=== PATIENT | female | born 1980 | race Caucasian/White ===

== ENCOUNTER 2016-06-30 00:53 | Inpatient (IN) | payer MEDICAID, OTHER ==
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
[2016-06-30] MEDS ORDERED: ZIPRASIDONE 20 MG VIAL IM PRN (04:55)
[2016-06-30] MEDS ORDERED: MAGNESIUM HYDROXIDE 2,400 MG/10 ML CUP PO PRN (04:55)
[2016-06-30] MEDS ORDERED: MAG HYDROX/AL HYDROX/SIMETH 30 ML CUP PO PRN (04:55)
[2016-06-30 06:14] VITALS: BMI 35.0
[2016-06-30] MEDS: NICOTINE 21MG/24HR PATCH TRANSDERM SCH (08:16)
[2016-06-30] MEDS: LORazepam 1 MG TAB PO PRN ×2 (08:16→20:06)
[2016-06-30 09:06] LABS: Basophils # (A) 0.1 k/uL (0-0.2); Basophils % (A) 1 %; CH 30.3; CHCM 34.3; Eosinophils # (A) 0.2 k/uL (0-0.7); Eosinophils % (A) 2 %; HCT 41.3 % (34.0-46.0); HGB 13.8 gm/dL (11.4-16.0); Luc % (Auto) 2; Lymphocytes # (A) 3.7 k/uL (1.0-4.8); Lymphocytes % (A) 32 %; MCH 29.6 pg (25.0-35.0); MCHC 33.3 g/dL (31.0-37.0); MCV 88.9 fL (80.0-100.0); Mean Platelet Volume 7.6; Monocytes # (A) 0.5 k/uL (0-1.0); Monocytes % (A) 5 %; Neutrophils # (A) 6.7 k/uL (1.3-7.7); Neutrophils % (A) 59 %; RBC 4.64 m/uL (3.80-5.40); WBC 11.4 k/uL (3.8-10.6); WBC (Perox) 11.48
[2016-06-30 09:29] LABS: ALT 51 U/L (9-52); AST 32 U/L (14-36); Alkaline Phosphatase 89 U/L (38-126); Anion Gap 16 mmol/L; Blood Urea Nitrogen 13 mg/dL (7-17); Calcium 9.6 mg/dL (8.4-10.2); Carbon Dioxide 21 mmol/L (22-30); Chloride 106 mmol/L (98-107); Glucose 102 mg/dL (74-99); Non-African American GFR(MDRD) >60 (>60 ml/min/1.73 sqM); Potassium 4.1 mmol/L (3.5-5.1); Sodium 143 mmol/L (137-145); Total Bilirubin 0.5 mg/dL (0.2-1.3)
[2016-06-30] MEDS: CITALOPRAM HYDROBROMIDE 20 MG TAB PO SCH (10:55)
[2016-06-30 11:03] LABS: Hemoglobin A1C 5.6 % (4.2-6.1)
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
[2016-06-30] MEDS: LORATADINE 10 MG TAB PO SCH (12:28)
[2016-06-30] MEDS: AMOXIC-POT CLAV 875-125MG 1 EACH TAB PO SCH ×2 (12:28→20:04)
[2016-06-30] MEDS: FLUTICASONE 50MCG/SPRAY NASAL 16GM EA NOSTRIL SCH (12:28)
[2016-06-30] MEDS: lamoTRIgine 25 MG TAB PO SCH ×2 (16:23→20:04)
[2016-06-30] MEDS: Acetaminophen-Codeine 300-30mg TAB PO PRN (17:22)
[2016-06-30] MEDS: PALIPERIDONE 6 MG TAB.ER.24 PO SCH (20:04)
[2016-06-30] MEDS: SYMBICORT 160-4.5 MCG INHALER INHALATION SCH (20:51)
[2016-06-30] MEDS: ALBUTEROL INHALER 60 PUFF/8 GM INHALER INHALATION PRN (20:51)
[2016-06-30] MEDS ORDERED: MELATONIN 3 MG TABLET PO SCH (21:00)
[2016-07-01 04:07] LABS: Glucose,Whole Blood 95 mg/dL (75-99)
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
[2016-07-01] MEDS: CITALOPRAM HYDROBROMIDE 20 MG TAB PO SCH (08:50)
[2016-07-01] MEDS: LORATADINE 10 MG TAB PO SCH (08:50)
[2016-07-01] MEDS: lamoTRIgine 25 MG TAB PO SCH ×3 (08:50→21:07)
[2016-07-01] MEDS: NICOTINE 21MG/24HR PATCH TRANSDERM SCH (08:50)
[2016-07-01] MEDS: AMOXIC-POT CLAV 875-125MG 1 EACH TAB PO SCH ×2 (08:50→21:07)
[2016-07-01] MEDS: FLUTICASONE 50MCG/SPRAY NASAL 16GM EA NOSTRIL SCH (08:50)
[2016-07-01] MEDS: SYMBICORT 160-4.5 MCG INHALER INHALATION SCH (09:21)
--- NOTE | 2016-07-01 15:33 | P.PN ---
Progress Note - Text SUBJECTIVE: Patient is still having auditory hallucinations ,no command voice and less intense than before,reports feeling tired and fatigued"I AM TRYING TO ADJUST TO MEDICATION",patient started talking about "HER SLEEPWALKING " and when I told her that we did not notice any sleepwalking episode since her admission ,she replied "IT DOES HAPPEN MORE AT HOME , IT IS NOT FAIR TO BE RESPONSIBLE OF MY ACTION DURING SLEEPWALKING",I discussed with her that she has to follow-up with sleep clinic for 24 hours sleep studies PER NURSING STAFF : Patient did request PRN Ativan last night ,staying in bed most of day ,up for meal ,no participation in groups MENTAL STATUS EXAM: Overweight female ,poor grooming ,good eyes contact ,speech is non spontaneous but coherent ,constricted affect ,denies suicidal or homicidal ideation ,still having auditory hallucination ,less intense.than yesterday ,insight is limited PLAN: Monitor any acting out behavior ,continue current medications ,decrease PRN Ativan ,Family meeting with on weekend
[2016-07-01] MEDS: LORazepam 0.5 MG TAB PO PRN (16:42)
[2016-07-01] MEDS: PALIPERIDONE 6 MG TAB.ER.24 PO SCH (21:07)
[2016-07-01] MEDS: Acetaminophen-Codeine 300-30mg TAB PO PRN (21:10)
[2016-07-02] MEDS: ACETAMINOPHEN TAB 325 MG TAB PO PRN ×2 (00:40→19:02)
[2016-07-02] MEDS: ALBUTEROL INHALER 60 PUFF/8 GM INHALER INHALATION PRN ×2 (00:51→16:27)
[2016-07-02] MEDS: SYMBICORT 160-4.5 MCG INHALER INHALATION SCH ×3 (00:53→16:29)
[2016-07-02] MEDS: LORATADINE 10 MG TAB PO SCH (10:52)
[2016-07-02] MEDS: NICOTINE 21MG/24HR PATCH TRANSDERM SCH (10:52)
[2016-07-02] MEDS: AMOXIC-POT CLAV 875-125MG 1 EACH TAB PO SCH ×2 (10:52→21:17)
[2016-07-02] MEDS: CITALOPRAM HYDROBROMIDE 20 MG TAB PO SCH (10:52)
[2016-07-02] MEDS: lamoTRIgine 25 MG TAB PO SCH ×3 (10:53→21:18)
[2016-07-02] MEDS: FLUTICASONE 50MCG/SPRAY NASAL 16GM EA NOSTRIL SCH (10:53)
[2016-07-02] MEDS: LORazepam 0.5 MG TAB PO PRN (15:14)
[2016-07-02] MEDS: Acetaminophen-Codeine 300-30mg TAB PO PRN (15:14)
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
[2016-07-02 21:02] LABS: Appearance,Urine Clear (Clear); Bilirubin,Urine Negative (Negative); Glucose,Urine (UA) Negative (Negative); Ketones,Urine Negative (Negative); Leukocyte Esterase,Urine Negative (Negative); Nitrite,Urine Negative (Negative); Particle Count 242; Protein,Urine Negative (Negative); RBC,Urine 1 /hpf (0-5); Specific Gravity,Urine 1.004 (1.001-1.035); Squamous Epithelial Cell,Urine <1 /hpf (0-4); UA Billing (MACRO vs. MICRO) MICRO; Urobilinogen,Urine <2.0 mg/dL (<2.0)
[2016-07-02] MEDS: MELATONIN 3 MG TABLET PO SCH (21:17)
[2016-07-02] MEDS: PALIPERIDONE 3 MG TAB.ER.24 PO SCH (21:17)
[2016-07-03 05:51] VITALS: RESP 16
[2016-07-03] MEDS: lamoTRIgine 25 MG TAB PO SCH ×3 (08:55→21:21)
[2016-07-03] MEDS: AMOXIC-POT CLAV 875-125MG 1 EACH TAB PO SCH ×2 (08:55→21:20)
[2016-07-03] MEDS: CITALOPRAM HYDROBROMIDE 20 MG TAB PO SCH (08:55)
[2016-07-03] MEDS: LORATADINE 10 MG TAB PO SCH (08:55)
[2016-07-03] MEDS: FLUTICASONE 50MCG/SPRAY NASAL 16GM EA NOSTRIL SCH (08:56)
[2016-07-03] MEDS: NICOTINE 21MG/24HR PATCH TRANSDERM SCH (08:58)
[2016-07-03] MEDS: Acetaminophen-Codeine 300-30mg TAB PO PRN ×2 (08:58→21:21)
[2016-07-03] MEDS: LORazepam 0.5 MG TAB PO PRN (11:05)
--- NOTE | 2016-07-03 15:13 | P.PN ---
Progress Note - Text SUBJECTIVE: patient had her family meeting this afternoon and feeling hopeful regarding future of her marriage,denies any current hallucination ,denies any delusion , able to tolerate medication ,started to participate in milieu MENTAL STATUS EXAM: Overweight female ,adequate grooming ,good eyes contact ,speech is non spontaneous but coherent ,constricted affect ,denies suicidal or homicidal ideation , denies psychotic features ,denies any side-effect from psychotropic medication PLAN: Monitor any acting out behavior ,continue current medications ,decrease PRN Ativan ,most likely discharge on Tuesday
[2016-07-03] MEDS: SYMBICORT 160-4.5 MCG INHALER INHALATION SCH ×2 (16:50→19:58)
[2016-07-03] MEDS ORDERED: ASPIRIN 325 MG TAB PO STA (16:52)
[2016-07-03] MEDS: PALIPERIDONE 3 MG TAB.ER.24 PO SCH (21:20)
[2016-07-03] MEDS: MELATONIN 3 MG TABLET PO SCH (21:20)
[2016-07-03] MEDS: hydrOXYzine PAMOATE 25 MG CAP PO PRN (21:21)
[2016-07-03 21:35] LABS: Glucose,Whole Blood 132 mg/dL (75-99)
[2016-07-04] MEDS: CITALOPRAM HYDROBROMIDE 20 MG TAB PO SCH ×2 (08:41→08:43)
[2016-07-04] MEDS: AMOXIC-POT CLAV 875-125MG 1 EACH TAB PO SCH ×2 (08:41→21:05)
[2016-07-04] MEDS: FLUTICASONE 50MCG/SPRAY NASAL 16GM EA NOSTRIL SCH (08:41)
[2016-07-04] MEDS: lamoTRIgine 25 MG TAB PO SCH ×3 (08:41→21:05)
[2016-07-04] MEDS: LORATADINE 10 MG TAB PO SCH ×2 (08:41→08:43)
[2016-07-04] MEDS: Acetaminophen-Codeine 300-30mg TAB PO PRN ×2 (08:42→21:10)
[2016-07-04] MEDS: NICOTINE 21MG/24HR PATCH TRANSDERM SCH (08:44)
[2016-07-04] MEDS: SYMBICORT 160-4.5 MCG INHALER INHALATION SCH ×3 (11:29→23:09)
--- NOTE | 2016-07-04 13:37 | P.PN ---
Progress Note - Text SUBJECTIVE: Patient is feeling hopeful regarding future of her marriage,denies any current hallucination ,denies any delusion ,able to tolerate medication ,started to participate in milieu ,asked for letter to take it to court on July 13 regarding assault charge ,I told her that her district attorney can request record ,she verbalized understanding MENTAL STATUS EXAM: Overweight female ,adequate grooming ,good eyes contact ,speech is non spontaneous but coherent ,constricted affect ,denies suicidal or homicidal ideation , denies psychotic features ,denies any side-effect from psychotropic medication PLAN: Monitor any acting out behavior ,continue current medications ,decrease PRN Ativan ,most likely discharge on Tuesday
[2016-07-04] MEDS: ACETAMINOPHEN TAB 325 MG TAB PO PRN (15:31)
[2016-07-04] MEDS: LORazepam 0.5 MG TAB PO PRN (17:29)
[2016-07-04] MEDS: PALIPERIDONE 3 MG TAB.ER.24 PO SCH (21:05)
[2016-07-04] MEDS: MELATONIN 3 MG TABLET PO SCH (21:05)
[2016-07-04] MEDS: hydrOXYzine PAMOATE 25 MG CAP PO PRN (21:11)
[2016-07-05 06:42] VITALS: BP 100/53; PULSE 74; TEMP 98.3
[2016-07-05] MEDS: NICOTINE 21MG/24HR PATCH TRANSDERM SCH (08:22)
[2016-07-05] MEDS: FLUTICASONE 50MCG/SPRAY NASAL 16GM EA NOSTRIL SCH (08:22)
[2016-07-05] MEDS: lamoTRIgine 25 MG TAB PO SCH (08:23)
[2016-07-05] MEDS: AMOXIC-POT CLAV 875-125MG 1 EACH TAB PO SCH (08:23)
[2016-07-05] MEDS: Acetaminophen-Codeine 300-30mg TAB PO PRN (08:24)
[2016-07-05] MEDS: LORazepam 0.5 MG TAB PO PRN (08:24)
[2016-07-05] MEDS: SYMBICORT 160-4.5 MCG INHALER INHALATION SCH (09:12)
--- NOTE | 2016-07-06 07:38 | DS ---
DATE OF ADMISSION: 06/30/2016 DATE OF DISCHARGE: 07/05/2016 CONSULT PHYSICIAN: Zhang. CONSULTING PROVIDER: Dr. Juan Ross Consult reason for medical management. DISCHARGE DIAGNOSES: 1. Bipolar disorder type 2. 2. Cannabis abuse and dependence. 3. History of posttraumatic stress disorder. 4. Cluster B personality trait. 5. Acute sinusitis and asthma. Brief summary of the admission note: Patient was admitted to the mental health unit from the emergency room for hallucination, telling her to hurt herself and hurt her . For complete history, please refer to my complete history and physical examination dictated on June 30. HOSPITAL COURSE: The patient was admitted on voluntary basis. Dr. Ross saw the patient for medical consultation and is impression that the patient has acute sinusitis, asthma and chronic pain and he did start her on Augmentin with Ventolin inhaler and Claritin. In addition, he did add Tylenol with Codeine for her chronic pain. Patient was seen on daily basis and I did start her on her medications that she stated that it was effective 6 months ago and this is including Invega, Lamictal and Celexa and I gradually titrated Invega to eliminate all auditory hallucination and the delusional thinking. Patient was able to tolerate medication and she was participating in group therapy just for the last couple of days of her admission here. networker had family meeting between the patient and her and she did discuss that both of them need to be compliant with psychotropic medication to avoid any assault or any argument. Also, we did recommend that both have to seek marriage counseling. Mental status examination at the time of the discharge, patient is alert, gave good eye contact, hygiene and grooming are adequate. Speech is spontaneous, non-pressured, thought process is linear. She reports no homicidal or suicide ideation, intent or plan. She does not feel hopeless. There is no evidence of hypomania or freddie. There is no evidence of psychosis. Her insight and judgment are improving. There is no verbal or physical aggression observed. PLAN: 1. The patient will be discharged from the mental health unit today to return back home. 2. Patient was referred back to [facility] for medication on counseling. 3. Patient was instructed to abstain from marijuana and any habit-forming drug. 4. Patient was instructed to be compliant with psychotropic medication to avoid rehospitalization. 5. Patient was given a one-month supply for Invega 9 mg at bedtime, Lamictal 25 mg 3 times a day for one month, Celexa 40 mg daily. Also, I did give her Augmentin to continue the course of antibiotic for the next 4 days for her acute sinusitis and Flonase in addition to the Claritin. There is no eminent safety risk and patient is appropriate for transition back to his outpatient care. Patient does not have access to any firearms. Patient condition at the time of the discharge, stable.
== END 2016-07-05 09:44 | disposition home or self-care (01) | DRG 885 ==
LOC: EC 00:53 → 3MHU 04:30
PROVIDERS: ADMIT Psychiatry & Neurology Psychiatry; ATTEND Psychiatry & Neurology Psychiatry
DX: F31.81 Bipolar II disorder (principal); R45.851 Suicidal ideations; E11.9 Type 2 diabetes mellitus without complications; F17.210 Nicotine dependence, cigarettes, uncomplicated; F41.0 Panic disorder [episodic paroxysmal anxiety]; J01.90 Acute sinusitis, unspecified; F12.10 Cannabis abuse, uncomplicated; F43.10 Post-traumatic stress disorder, unspecified; G47.00 Insomnia, unspecified; G89.29 Other chronic pain; I25.2 Old myocardial infarction; J45.909 Unspecified asthma, uncomplicated; Z65.3 Problems related to other legal circumstances; Z81.3 Family history of other psychoactive substance abuse and dependence; Z81.8 Family history of other mental and behavioral disorders; Z82.49 Family history of ischemic heart disease and other diseases of the circulatory system; Z91.410 Personal history of adult physical and sexual abuse
CPT/HCPCS: 80053; 80306; 81001; 82075; 83036; 84443; 84484; 85025; 93005; 94640

== ENCOUNTER → 2016-08-26 | Outpatient (CLI) | payer OTHER ==
--- NOTE | 2016-08-27 07:17 | MM ---
Reason for exam: additional evaluation requested from prior study. Last mammogram was performed 1 year and 5 months ago. History: Patient has history of other cancer at age 34. Physical Findings: Nurse did not find any significant physical abnormalities on exam. MG 3D Diag Mammo W/Cad ROZ Bilateral CC and MLO view(s) were taken. ML and spot compression CC view(s) were taken of the right breast. Prior study comparison: April 11, 2015, left breast MG 3d work up w/cad LT. February 12, 2015, bilateral MG screening mammo w CAD. The breast tissue is heterogeneously dense. This may lower the sensitivity of mammography. Finding: There is a 7 mm indistinct round mass, this compresses. New finding since April 11, 2015 and February 12, 2015. These results were verbally communicated with the patient and result sheet given to the patient on 08/26/16. ASSESSMENT: Probably benign, BI-RAD 3 RECOMMENDATION: Follow-up diagnostic mammogram of the right breast in 6 months. Manage on a clinical basis with regard to right breast discharge.
== END | disposition home or self-care (01) ==
LOC: RADMAMWWP 13:36
PROVIDERS: ATTEND Nurse Practitioner
DX: R92.2 Inconclusive mammogram (principal)
CPT/HCPCS: G0204; G0279

== ENCOUNTER 2016-08-30 23:38 | Inpatient (IN) | payer MEDICAID, OTHER ==
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
[2016-08-31 02:10] LABS: ALT 46 U/L (9-52); AST 36 U/L (14-36); Alkaline Phosphatase 71 U/L (38-126); Anion Gap 9 mmol/L; Blood Urea Nitrogen 11 mg/dL (7-17); Calcium 9.3 mg/dL (8.4-10.2); Carbon Dioxide 26 mmol/L (22-30); Chloride 104 mmol/L (98-107); Glucose 84 mg/dL (74-99); Lithium 0.8 mmol/L; Non-African American GFR(MDRD) >60 (>60 ml/min/1.73 sqM); Potassium 3.6 mmol/L (3.5-5.1); Sodium 139 mmol/L (137-145); Total Bilirubin 0.5 mg/dL (0.2-1.3); Total Protein 7.9 g/dL (6.3-8.2)
[2016-08-31 03:31] VITALS: BMI 37.3
[2016-08-31] MEDS ORDERED: MAG HYDROX/AL HYDROX/SIMETH 30 ML CUP PO PRN (03:51)
[2016-08-31] MEDS ORDERED: ZIPRASIDONE 20 MG VIAL IM PRN (03:51)
[2016-08-31] MEDS ORDERED: MAGNESIUM HYDROXIDE 2,400 MG/10 ML CUP PO PRN (03:51)
[2016-08-31] MEDS ORDERED: PALIPERIDONE IM 234 MG/1.5 ML SYG IM SCH (04:00)
[2016-08-31] MEDS: SYMBICORT 160-4.5 MCG INHALER INHALATION SCH ×2 (09:40→21:40)
[2016-08-31] MEDS: CHOLECALCIFEROL 1,000 UNIT TAB PO SCH (10:02)
[2016-08-31] MEDS: LORATADINE 10 MG TAB PO SCH (10:02)
[2016-08-31] MEDS: CITALOPRAM HYDROBROMIDE 20 MG TAB PO SCH (10:02)
[2016-08-31] MEDS: LORazepam 1 MG TAB PO PRN ×2 (10:04→19:16)
[2016-08-31] MEDS: HYDROcodone/APAP 5-325MG 1 EACH TAB PO PRN ×2 (10:04→19:17)
[2016-08-31] MEDS: NICOTINE 14MG/24HR PATCH TRANSDERM SCH ×2 (10:42→11:28)
[2016-08-31] MEDS ORDERED: ONDANSETRON 4 MG TAB PO PRN (12:07)
[2016-08-31] MEDS: ALBUTEROL INHALER 60 PUFF/8 GM INHALER INHALATION PRN ×2 (13:45→21:40)
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
[2016-08-31] MEDS ORDERED: PALIPERIDONE IM 234 MG/1.5 ML SYG IM ONE (18:00)
[2016-08-31] MEDS: MELATONIN 5 MG TABLET PO SCH (21:20)
[2016-08-31] MEDS: hydrOXYzine PAMOATE 25 MG CAP PO SCH (21:20)
[2016-08-31] MEDS: LITHIUM CARBONATE 300 MG CAP PO SCH (21:21)
[2016-09-01] MEDS: SYMBICORT 160-4.5 MCG INHALER INHALATION SCH ×2 (09:32→22:23)
[2016-09-01] MEDS: CHOLECALCIFEROL 1,000 UNIT TAB PO SCH (10:03)
[2016-09-01] MEDS: CITALOPRAM HYDROBROMIDE 20 MG TAB PO SCH (10:04)
[2016-09-01] MEDS: NICOTINE 14MG/24HR PATCH TRANSDERM SCH (10:04)
[2016-09-01] MEDS: LORATADINE 10 MG TAB PO SCH (10:04)
[2016-09-01 10:29] LABS: Basophils % (A) 0 %; CH 29.3; CHCM 33.4; Eosinophils # (A) 0.2 k/uL (0-0.7); Eosinophils % (A) 3 %; HCT 36.7 % (34.0-46.0); HDW 2.53; HGB 12.6 gm/dL (11.4-16.0); Luc # (Auto) 0.11; Luc % (Auto) 2; Lymphocytes # (A) 1.7 k/uL (1.0-4.8); Lymphocytes % (A) 25 %; MCH 30.2 pg (25.0-35.0); MCHC 34.3 g/dL (31.0-37.0); MCV 88.2 fL (80.0-100.0); Monocytes # (A) 0.4 k/uL (0-1.0); Monocytes % (A) 6 %; Neutrophils # (A) 4.6 k/uL (1.3-7.7); Neutrophils % (A) 65 %; RBC 4.16 m/uL (3.80-5.40); RDW 13.3 % (11.5-15.5); WBC (Perox) 7.64
--- NOTE | 2016-09-01 13:27 | P.PN ---
Progress Note - Text SUBJECTIVE: I reviewed the medical record, interviewed Ms. Rodriguez and discussed her treatment and treatment plan during team meeting. She was sleeping in a room when I approached her this morning. She complained of feeling tired. She denied difficulty sleeping last night. In response to questions about suicidality she replied "yes". OBJECTIVE: She presented as a sedated and disheveled appearing 36-year-old female. She made eye contact and appeared to attend to the interview. She had a flat facial expression. She showed psychomotor retardation but no abnormal involuntary movements. Her speech was not spontaneous and had decreased rate, rhythm and volume. Her affect was depressed and not reactive. She admitted to suicidal ideation or wishes. I was unclear whether she had homicidal ideation but is angry with her . She feels hopeless, helpless and worthless. She ruminated about her legal problems. She did not express ideas reference or paranoid ideation. Her thinking was concrete but her associations were logical and coherent. She complained of continued "voices" but does not appear to be responding to internal stimuli. According to information from [facility] she received her last injection of Invega Sustenna 234 mg on 08/09/2016; her next injection is scheduled for 2016.Medical consult appreciated. [place] level from 08/31/2016 0.8. ASSESSMENT: Her fatigue and withdrawal is consistent with use of psychostimulants prior to admission (although she denied the use of amphetamines or methamphetamine). PLAN: Continue inpatient psychiatric hospitalization. Administer Invega Sustenna 234 mg at 09/06/2016. Continue assault precautions with 15 minute checks. licensing worker to exercise daily to warn regarding her expressed homicidal thoughts towards her . Continue current psychotropic medications including citalopram 40 mg daily, Vistaril 50 mg at bedtime, lithium carbonate 600 mg at bedtime, lorazepam 1 mg by mouth 3 times a day when necessary for agitation or anxiety, melatonin 5 mg at bedtime, and Geodon 20 mg IM twice a day when necessary for agitation acute psychosis. Encourage participation in therapeutic groups and activities. Evaluate clinical status response to treatment and daily basis.
[2016-09-01] MEDS: HYDROcodone/APAP 5-325MG 1 EACH TAB PO PRN (13:54)
[2016-09-01] MEDS: LORazepam 1 MG TAB PO PRN ×2 (13:54→21:05)
[2016-09-01] MEDS: LITHIUM CARBONATE 300 MG CAP PO SCH (21:03)
[2016-09-01] MEDS: hydrOXYzine PAMOATE 25 MG CAP PO SCH (21:03)
[2016-09-01] MEDS: MELATONIN 5 MG TABLET PO SCH (21:04)
[2016-09-02] MEDS: ALBUTEROL INHALER 60 PUFF/8 GM INHALER INHALATION PRN ×2 (09:16→13:50)
[2016-09-02] MEDS: SYMBICORT 160-4.5 MCG INHALER INHALATION SCH ×2 (09:16→19:20)
[2016-09-02] MEDS: CITALOPRAM HYDROBROMIDE 20 MG TAB PO SCH (10:23)
[2016-09-02] MEDS: CHOLECALCIFEROL 1,000 UNIT TAB PO SCH (10:23)
[2016-09-02] MEDS: LORATADINE 10 MG TAB PO SCH (10:23)
[2016-09-02] MEDS: NICOTINE 14MG/24HR PATCH TRANSDERM SCH (10:23)
[2016-09-02] MEDS: LORazepam 1 MG TAB PO PRN (13:19)
[2016-09-02] MEDS: HYDROcodone/APAP 5-325MG 1 EACH TAB PO PRN (13:20)
--- NOTE | 2016-09-02 14:54 | P.PN ---
Progress Note - Text SUBJECTIVE: I reviewed the medical record, interviewed Mr. Rodriguez and discussed her treatment and treatment plan during team meeting. She was lying in bed when I approached her in the early afternoon. He stated that she " always feels tired." She complained of continued feelings of depression, anxiety, hopelessness and helplessness. Her visited her yesterday. When she told him that she wants a separation he reportedly told her that he is going home and overdose on his medications. She feels overwhelmed by demands of mental health court and talked about struggling with decision to continue with mental health court or serve her long-term time. She has been to [facility] to review her medications. She alleged that she was "doing better" when her outpatient psychiatrist had prescribed Lamictal instead of lithium. OBJECTIVE: She spends most for time in bed. She does not participate in therapeutic groups and activities. She presented as a casually groomed sedated appearing 36-year-old female who was pleasant on approach. She made little eye contact. However, she appeared to attend to the interview. She had a depressed facial expression. She was alert and oriented to person, place and time. She showed psychomotor retardation but no abnormal involuntary movements. Her speech was spontaneous with decreased rate, rhythm and volume. She had no articulation difficulties. Her affect was depressed and not reactive. She denied current suicidal ideation or wishes. She denied homicidal ideation. She expresses feelings of hopelessness, helplessness and worthlessness. She related about her legal and marital problems. She did not express ideas reference, paranoid ideation or delusions. Her thinking was concrete but her associations were coherent and logical. She denied hallucinations and did not appear to be responding to internal stimuli. ASSESSMENT: She continues reported feelings of depression but denies suicidal ideation, intent or plan. She feels overwhelmed by her legal and marital problems. Overall she appears moderately mentally and minimally improve from admission. PLAN: Continue inpatient psychiatric hospitalization due continued symptoms of depression. Continue Celexa 40 mg daily, Vistaril 50 mg at bedtime, lithium carbonate 600 mg at bedtime, melatonin 5 mg at bedtime and Invega Sustenna 234 mg IM monthly. Clarify her medication treatment history with her outpatient psychiatrist. Encourage participation in therapeutic groups and activities. Evaluate clinical status and response to treatment daily basis.
[2016-09-02] MEDS: MELATONIN 5 MG TABLET PO SCH (20:55)
[2016-09-02] MEDS: LITHIUM CARBONATE 300 MG CAP PO SCH (20:55)
[2016-09-02] MEDS: hydrOXYzine PAMOATE 25 MG CAP PO SCH (20:55)
[2016-09-03] MEDS: CHOLECALCIFEROL 1,000 UNIT TAB PO SCH (09:51)
[2016-09-03] MEDS: LORATADINE 10 MG TAB PO SCH (09:52)
[2016-09-03] MEDS: CITALOPRAM HYDROBROMIDE 20 MG TAB PO SCH (09:52)
[2016-09-03] MEDS: NICOTINE 14MG/24HR PATCH TRANSDERM SCH (09:52)
[2016-09-03] MEDS: HYDROcodone/APAP 5-325MG 1 EACH TAB PO PRN ×2 (09:54→20:59)
[2016-09-03] MEDS: SYMBICORT 160-4.5 MCG INHALER INHALATION SCH ×2 (10:52→20:27)
[2016-09-03] MEDS: lamoTRIgine 25 MG TAB PO SCH (10:55)
--- NOTE | 2016-09-03 13:35 | P.PN ---
Progress Note - Text SUBJECTIVE: I reviewed the medical record, interviewed Ms. Rodriguez and discussed her treatment and treatment plan during team meeting. She complained of feeling depressed and lacking energy and motivation to meet the demands placed on her. field ironworker gave her an application for a three-quarter house through [employer] but she alleged she is unable to complete the application without assistance. She admitted that she had relapsed to cocaine and methamphetamine over the weekend (she had denied using either admission and alleged that the results of the urine drug screen was inaccurate). She blamed her for relapse stating that she has repeatedly told him not to bring drugs home. She believes that if she were to return home she would not be able to resist using methamphetamine. She only feels normal when she is snorting methamphetamine. She again complained about her current medications alleging that she "felt better" when she was taking Lamictal as opposed to lithium. She requested that we restart Lamictal. OBJECTIVE: She presented as a casually groomed 36-year-old moderately obese female with long unkempt hair. He was pleasant on approach and appeared to attend to the interview. She had no distinguishing features or prominent physical abnormalities. She had a blunted to distressed facial expression. She was alert and oriented to person place and time. She showed psychomotor retardation but no abnormal involuntary movements. Her speech was spontaneous with decreased rate. Her affect was depressed and labile. She denied suicidal ideation or wishes. She denied homicidal ideation. She suspects feeling hopeless and helpless with regard to her drug use and the demands of mental health Court. She perseverated on her difficulties with keeping the terms of her probation. She did not express ideas reference, paranoid ideation or delusional thoughts. Her thinking was concrete but her associations were coherent and logical. She denied hallucinations and did not appear to be responding to internal stimuli. ASSESSMENT: The depression and generalized anhedonia are likely results of the use of methamphetamine. She understands that she is in violation of her probation and may be facing incarceration. PLAN: Continue inpatient hospitalization due continued depressive symptoms. Initially Celexa 40 mg daily, Vistaril 50 mg at bedtime, lithium carbonate 600 mg at bedtime, melatonin 5 mg at bedtime and Invega Sustenna 234 mg monthly. Restart Lamictal 25 mg daily and titrate gradually to therapeutic dose and the range of 100-200 mg per day. Completed application for the [employer] three- quarter house. Discharge of family if she is unable to enter a three-quarter house after discharge. Encourage participation in therapeutic groups and activities. Evaluate clinical status response to treatment on a daily basis.
[2016-09-03] MEDS: LORazepam 1 MG TAB PO PRN (15:16)
[2016-09-03] MEDS: ALBUTEROL INHALER 60 PUFF/8 GM INHALER INHALATION PRN ×2 (16:52→20:27)
[2016-09-03] MEDS: ACETAMINOPHEN TAB 325 MG TAB PO PRN (18:54)
[2016-09-03] MEDS: LITHIUM CARBONATE 300 MG CAP PO SCH (20:58)
[2016-09-03] MEDS: hydrOXYzine PAMOATE 25 MG CAP PO SCH (20:59)
[2016-09-03] MEDS: MELATONIN 5 MG TABLET PO SCH (20:59)
[2016-09-04] MEDS: CHOLECALCIFEROL 1,000 UNIT TAB PO SCH (08:29)
[2016-09-04] MEDS: LORATADINE 10 MG TAB PO SCH (08:29)
[2016-09-04] MEDS: CITALOPRAM HYDROBROMIDE 20 MG TAB PO SCH (08:30)
[2016-09-04] MEDS: lamoTRIgine 25 MG TAB PO SCH (08:30)
[2016-09-04] MEDS: NICOTINE 14MG/24HR PATCH TRANSDERM SCH (08:31)
[2016-09-04] MEDS: SYMBICORT 160-4.5 MCG INHALER INHALATION SCH ×2 (09:43→21:27)
[2016-09-04] MEDS: ALBUTEROL INHALER 60 PUFF/8 GM INHALER INHALATION PRN ×4 (09:43→21:28)
--- NOTE | 2016-09-04 15:10 | P.PN ---
Progress Note - Text Interval history: The patient is found in group she follows me to an interview room. She states that she was admitted with suicidal thoughts. She states that she's been struggling with "switching personalities". She states she wishes she could control this but she just can't. She anticipates her will visit this evening in hopes that it goes well however she states "one of my personalities does not like him". Her and Dr. Jay reviewed her medicines yesterday and Lamictal was initiated as she reported she had done well with that in the past. She reports appetite stable sleep is improving. Mental status exam: The patient is an overweight female she has a disheveled appearance she is dressed in her own clothing. She has long hair and wears eyeglasses. Eye contact is appropriate speech is spontaneous fluent nonpressured. She reports that her mood is better today she had suicidal thoughts yesterday but none today so far. She expresses concern that she is not able to control her personalities. She is reporting no homicidal ideation. She is reporting no auditory or visual hallucinations currently. Insight and judgment are limited. She demonstrates no verbal or physical aggressiveness. No abnormal involuntary movements. She is oriented to person place and date. Plan: The patient will continue on her current medications vital signs are reviewed. She is encouraged to continue participating in the milieu.
[2016-09-04] MEDS: LORazepam 1 MG TAB PO PRN ×2 (15:17→23:25)
[2016-09-04] MEDS: HYDROcodone/APAP 5-325MG 1 EACH TAB PO PRN ×2 (15:17→23:25)
[2016-09-04] MEDS: LITHIUM CARBONATE 300 MG CAP PO SCH (21:03)
[2016-09-04] MEDS: hydrOXYzine PAMOATE 25 MG CAP PO SCH (21:04)
[2016-09-04] MEDS: MELATONIN 5 MG TABLET PO SCH (21:04)
[2016-09-04] MEDS: ACETAMINOPHEN TAB 325 MG TAB PO PRN (21:06)
[2016-09-05] MEDS: SYMBICORT 160-4.5 MCG INHALER INHALATION SCH ×2 (08:50→21:18)
[2016-09-05] MEDS: ALBUTEROL INHALER 60 PUFF/8 GM INHALER INHALATION PRN ×2 (08:50→16:37)
[2016-09-05] MEDS: NICOTINE 21MG/24HR PATCH TRANSDERM SCH (09:02)
[2016-09-05] MEDS: LORATADINE 10 MG TAB PO SCH (09:03)
[2016-09-05] MEDS: CITALOPRAM HYDROBROMIDE 20 MG TAB PO SCH (09:03)
[2016-09-05] MEDS: lamoTRIgine 25 MG TAB PO SCH (09:03)
[2016-09-05] MEDS: CHOLECALCIFEROL 1,000 UNIT TAB PO SCH (09:03)
[2016-09-05] MEDS: LORazepam 1 MG TAB PO PRN ×2 (10:11→20:34)
[2016-09-05] MEDS: HYDROcodone/APAP 5-325MG 1 EACH TAB PO PRN ×2 (10:11→20:34)
--- NOTE | 2016-09-05 10:48 | P.PN ---
Progress Note - Text Interval history: The patient is found in the hallway she follows me to an interview room. She reports her mood is better. She states that she has caught herself singing which is usually an indication that her mood is improving. She reports now switching of personalities and states she had a pleasant meeting with her last evening. She states she informed him that she would not be returning home with him and is looking for alternative placement either staying in a room at her niece's house or living in a camping trailer that she would park it [place]. She has no questions or concerns regarding medications. She states that she slept last night appetite is stable and she continues to attend groups. She is also considering residence at a three-quarter home. Mental status exam: The patient is an overweight female she seated calmly she presents with adequate hygiene and fair grooming. She is dressed in her own clothing and has changed clothes since yesterday. Eye contact is appropriate. Speech is fluent sometime spontaneous, nonpressured. She reports her mood is "improving". Affect is constricted. She reports no suicidal or homicidal ideation intent or plan. She reports being free of any suicidal thoughts for 2 days now. She is reporting no auditory or visual hallucinations. Insight and judgment improving. She demonstrates no verbal or physical aggressiveness. No abnormal involuntary movements. Plan: The patient will continue on her current medications she feels that she is clinically improving. She is encouraged to continue participating in the milieu we will monitor her for safety.
[2016-09-05] MEDS: BENZOCAINE/MENTHOL LOZENG 1 EACH LOZENGE MUCOUS MEM PRN ×2 (11:10→20:33)
[2016-09-05] MEDS: MELATONIN 5 MG TABLET PO SCH (20:27)
[2016-09-05] MEDS: hydrOXYzine PAMOATE 25 MG CAP PO SCH (20:27)
[2016-09-05] MEDS: LITHIUM CARBONATE 300 MG CAP PO SCH (20:28)
[2016-09-06 05:36] VITALS: BP 119/60; PULSE 101; RESP 16; TEMP 98
[2016-09-06] MEDS: SYMBICORT 160-4.5 MCG INHALER INHALATION SCH (09:26)
[2016-09-06] MEDS: ALBUTEROL INHALER 60 PUFF/8 GM INHALER INHALATION PRN ×2 (09:26→13:29)
[2016-09-06] MEDS: CHOLECALCIFEROL 1,000 UNIT TAB PO SCH (09:47)
[2016-09-06] MEDS: NICOTINE 21MG/24HR PATCH TRANSDERM SCH (09:47)
[2016-09-06] MEDS: CITALOPRAM HYDROBROMIDE 20 MG TAB PO SCH (09:48)
[2016-09-06] MEDS: lamoTRIgine 25 MG TAB PO SCH (09:48)
[2016-09-06] MEDS: LORATADINE 10 MG TAB PO SCH (09:48)
[2016-09-06] MEDS: LORazepam 1 MG TAB PO PRN (09:48)
[2016-09-06] MEDS: HYDROcodone/APAP 5-325MG 1 EACH TAB PO PRN (09:49)
[2016-09-06] MEDS: BENZOCAINE/MENTHOL LOZENG 1 EACH LOZENGE MUCOUS MEM PRN (10:31)
[2016-09-06] MEDS ORDERED: PALIPERIDONE IM 234 MG/1.5 ML SYG IM ONE (14:20)
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
[2016-09-08] MEDS ORDERED: PALIPERIDONE IM 234 MG/1.5 ML SYG IM ONE (09:00)
== END 2016-09-06 16:29 | disposition home or self-care (01) | DRG 885 ==
LOC: EC 23:38 → 3MHU 08-31 02:57
PROVIDERS: ADMIT Psychiatry & Neurology Psychiatry; ATTEND Psychiatry & Neurology Psychiatry
DX: F33.3 Major depressive disorder, recurrent, severe with psychotic symptoms (principal); F15.20 Other stimulant dependence, uncomplicated; R45.851 Suicidal ideations; E11.9 Type 2 diabetes mellitus without complications; F11.10 Opioid abuse, uncomplicated; F12.20 Cannabis dependence, uncomplicated; F17.210 Nicotine dependence, cigarettes, uncomplicated; F31.81 Bipolar II disorder; F41.0 Panic disorder [episodic paroxysmal anxiety]; F43.10 Post-traumatic stress disorder, unspecified; F60.3 Borderline personality disorder; F91.9 Conduct disorder, unspecified; I25.2 Old myocardial infarction; J45.909 Unspecified asthma, uncomplicated; R45.850 Homicidal ideations; Z62.810 Personal history of physical and sexual abuse in childhood; Z63.0 Problems in relationship with spouse or partner; Z65.3 Problems related to other legal circumstances; Z79.899 Other long term (current) drug therapy; Z81.8 Family history of other mental and behavioral disorders; Z82.49 Family history of ischemic heart disease and other diseases of the circulatory system; Z85.41 Personal history of malignant neoplasm of cervix uteri; Z91.410 Personal history of adult physical and sexual abuse; Z91.040 Latex allergy status; S09.90XD Unspecified injury of head, subsequent encounter
CPT/HCPCS: 36415; 80053; 80178; 80306; 82075; 84443; 85025; 94640; 99285

== ENCOUNTER 2016-11-03 17:14 | Emergency (ER) | payer OTHER ==
[2016-11-03 17:38] VITALS: RESP 18
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
[2016-11-03] MEDS ORDERED: PALIPERIDONE IM 234 MG/1.5 ML SYG IM STA (19:28)
[2016-11-03 20:13] VITALS: BP 116/55; PULSE 79; TEMP 97.3
== END 2016-11-03 20:14 | disposition home or self-care (01) ==
LOC: EC 17:14 → SUPCPDRO 17:14 → EC 20:14
DX: F19.10 Other psychoactive substance abuse, uncomplicated (principal); F31.9 Bipolar disorder, unspecified; F41.9 Anxiety disorder, unspecified; I25.2 Old myocardial infarction; F17.200 Nicotine dependence, unspecified, uncomplicated; Z79.899 Other long term (current) drug therapy; Z91.040 Latex allergy status; Z86.69 Personal history of other diseases of the nervous system and sense organs; Z81.8 Family history of other mental and behavioral disorders
CPT/HCPCS: 99284 ×2; 96372 ×2; 82075; 80306; J2426

== ENCOUNTER 2018-02-12 19:10 | Emergency (ER) | payer OTHER ==
[2018-02-12 19:25] VITALS: RESP 18
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
--- NOTE | 2018-02-12 20:00 | XR ---
EXAMINATION TYPE: XR knee complete RT DATE OF EXAM: 02/12/2018 COMPARISON: NONE HISTORY: Knee pain TECHNIQUE: 3 views FINDINGS: I see no fracture nor dislocation. Joint spaces are normal. There is mild spurring of the m edial femoral and tibial condyles. There is no sign of joint effusion. IMPRESSION: Mild degenerative spur formation. Normal joint spaces. No fracture.
[2018-02-12 20:34] VITALS: BP 130/78; PULSE 98; TEMP 98.7
== END 2018-02-12 20:34 | disposition home or self-care (01) ==
LOC: EC 19:10
DX: M23.91 Unspecified internal derangement of right knee (principal); E11.9 Type 2 diabetes mellitus without complications; J45.909 Unspecified asthma, uncomplicated; I25.2 Old myocardial infarction; F31.9 Bipolar disorder, unspecified; F41.0 Panic disorder [episodic paroxysmal anxiety]; F17.200 Nicotine dependence, unspecified, uncomplicated; Z79.899 Other long term (current) drug therapy; Z91.040 Latex allergy status; Z85.41 Personal history of malignant neoplasm of cervix uteri; W23.0XXA Caught, crushed, jammed, or pinched between moving objects, initial encounter; X50.1XXA Overexertion from prolonged static or awkward postures, initial encounter
CPT/HCPCS: 99283

== ENCOUNTER → 2018-06-14 | Outpatient (CLI) | payer OTHER ==
--- NOTE | 2018-06-14 11:13 | MM ---
Reason for exam: additional evaluation requested from prior study. Last mammogram was performed 1 year and 10 months ago. History: Patient has history of other cancer at age 34. Family history of breast cancer in maternal aunt at age 50. Physical Findings: Nurse did not find any significant physical abnormalities on exam. MG 3D Diag Mammo W/Cad ROZ Bilateral CC and MLO view(s) were taken. Prior study comparison: August 26, 2016, bilateral MG 3d diag mammo w/cad ROZ. April 11, 2015, left breast MG 3d work up w/cad LT. The breast tissue is heterogeneously dense. This may lower the sensitivity of mammography. There is no discrete abnormality. No significant new findings when compared with previous films. These results were verbally communicated with the patient and result sheet given to the patient on 06/14/18. ASSESSMENT: Negative, BI-RAD 1 RECOMMENDATION: Routine screening mammogram of both breasts in 1 year. Manage patient on a clinical basis.
== END | disposition home or self-care (01) ==
LOC: RADMAMWWP 10:26
PROVIDERS: ATTEND Physician Assistant Medical
DX: R92.2 Inconclusive mammogram (principal)
CPT/HCPCS: 77066; G0279; 77062

== ENCOUNTER 2019-01-07 21:39 | Emergency (ER) | payer OTHER ==
[2019-01-07 22:00] VITALS: RESP 18; TEMP 98.3
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
[2019-01-07 23:31] VITALS: BP 123/68; PULSE 89
== END 2019-01-07 23:32 | disposition home or self-care (01) ==
LOC: EC 21:39
DX: F31.9 Bipolar disorder, unspecified (principal); F43.10 Post-traumatic stress disorder, unspecified; G40.909 Epilepsy, unspecified, not intractable, without status epilepticus; J45.909 Unspecified asthma, uncomplicated; E11.9 Type 2 diabetes mellitus without complications; I25.2 Old myocardial infarction; F17.200 Nicotine dependence, unspecified, uncomplicated; Z79.51 Long term (current) use of inhaled steroids; Z79.84 Long term (current) use of oral hypoglycemic drugs; Z79.899 Other long term (current) drug therapy; Z91.040 Latex allergy status; Z85.41 Personal history of malignant neoplasm of cervix uteri; Z98.890 Other specified postprocedural states; Z86.59 Personal history of other mental and behavioral disorders
CPT/HCPCS: 82075; 99284

== ENCOUNTER 2019-01-23 22:01 | Emergency (ER) | payer OTHER ==
[2019-01-23 22:17] VITALS: PULSE 90; RESP 17; TEMP 99.3
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
[2019-01-23 23:33] LABS: Basophils # (A) 0.1 k/uL (0-0.2); Basophils % (A) 1 %; Eosinophils # (A) 0.2 k/uL (0-0.7); Eosinophils % (A) 3 %; HCT 40.5 % (34.0-46.0); HGB 14.1 gm/dL (11.4-16.0); Lymphocytes # (A) 2.8 k/uL (1.0-4.8); Lymphocytes % (A) 35 %; MCH 29.2 pg (25.0-35.0); MCHC 34.7 g/dL (31.0-37.0); MCV 84.2 fL (80.0-100.0); Mean Platelet Volume 7.1; Monocytes # (A) 0.4 k/uL (0-1.0); Monocytes % (A) 6 %; Neutrophils # (A) 4.3 k/uL (1.3-7.7); Neutrophils % (A) 55 %; Platelet Count 345 k/uL (150-450); RBC 4.82 m/uL (3.80-5.40); RDW 13.5 % (11.5-15.5); WBC 7.9 k/uL (3.8-10.6)
[2019-01-23 23:37] LABS: ALT 32 U/L (9-52); AST 25 U/L (14-36); African American GFR (CKD) >90 (>60 ml/min/1.73 sqM); Albumin 4.4 g/dL (3.5-5.0); Alkaline Phosphatase 100 U/L (38-126); Anion Gap 12 mmol/L; Blood Urea Nitrogen 11 mg/dL (7-17); Calcium 9.9 mg/dL (8.4-10.2); Carbon Dioxide 24 mmol/L (22-30); Chloride 104 mmol/L (98-107); Glucose 96 mg/dL (74-99); Potassium 4.4 mmol/L (3.5-5.1); Sodium 140 mmol/L (137-145); Total Bilirubin 0.2 mg/dL (0.2-1.3); Total Protein 7.9 g/dL (6.3-8.2)
[2019-01-24 00:26] VITALS: BP 130/74
== END 2019-01-24 00:45 | disposition left against medical advice (07) ==
LOC: EC 22:01
DX: G40.409 Other generalized epilepsy and epileptic syndromes, not intractable, without status epilepticus (principal); E11.9 Type 2 diabetes mellitus without complications; I25.2 Old myocardial infarction; F17.200 Nicotine dependence, unspecified, uncomplicated; Z91.040 Latex allergy status; Z85.41 Personal history of malignant neoplasm of cervix uteri
CPT/HCPCS: 36415; 80053; 85025; 93005; 99284

== ENCOUNTER 2020-02-06 15:13 | Emergency (ER) | payer OTHER ==
[2020-02-06] MEDS ORDERED: FAMOTIDINE 20 MG TAB PO STA (16:01)
[2020-02-06] MEDS ORDERED: hydrOXYzine HCL 25 MG TAB PO STA (16:01)
[2020-02-06] MEDS ORDERED: DEXAMETHASONE SOD PHOSPHATE 10 MG/ML 1 ML VIAL IM STA (16:01)
[2020-02-06] MEDS ORDERED: PERMETHRIN 5% CREAM 60 GM TUBE TOPICAL ONE (16:01)
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
[2020-02-06 16:40] VITALS: BP 129/80; PULSE 78; RESP 18; TEMP 98.4
== END 2020-02-06 16:40 | disposition home or self-care (01) ==
LOC: EC 15:13
DX: S60.562A Insect bite (nonvenomous) of left hand, initial encounter (principal); S60.561A Insect bite (nonvenomous) of right hand, initial encounter; S80.862A Insect bite (nonvenomous), left lower leg, initial encounter; S80.861A Insect bite (nonvenomous), right lower leg, initial encounter; S90.862A Insect bite (nonvenomous), left foot, initial encounter; S90.861A Insect bite (nonvenomous), right foot, initial encounter; F17.200 Nicotine dependence, unspecified, uncomplicated; I25.2 Old myocardial infarction; Z91.040 Latex allergy status; W57.XXXA Bitten or stung by nonvenomous insect and other nonvenomous arthropods, initial encounter
CPT/HCPCS: 99283; 96372; J1100

== ENCOUNTER 2020-06-08 01:20 | Inpatient (IN) | payer MEDICAID, OTHER ==
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
[2020-06-08] MEDS ORDERED: ACETAMINOPHEN TAB 325 MG TAB PO STA (05:32)
[2020-06-08 06:02] LABS: Amphetamine Screen,Urine Detected (NotDetected); Barbiturate Screen,Urine Not Detected (NotDetected); Benzodiazepines Screen,Urine Not Detected (NotDetected); Cocaine Screen,Urine Detected (NotDetected); Methadone Screen, Urine Not Detected (NotDetected); Opiate Screen,Urine Not Detected (NotDetected); Oxycodone Screen, Urine Not Detected (NotDetected); Phencyclidine Screen,Urine Not Detected (NotDetected); Tricyclic Antidepressant,Urine Not Detected (NotDetected); Urn Cannabinoid Scrn Detected (NotDetected)
[2020-06-08] MEDS ORDERED: LORazepam 2 MG/ML INJ IM PRN (06:28)
[2020-06-08] MEDS ORDERED: HALOPERIDOL LACTATE 5 MG/ML 1 ML VIAL IM PRN (06:28)
[2020-06-08] MEDS ORDERED: MAG HYDROX/AL HYDROX/SIMETH 30 ML CUP PO PRN (06:28)
[2020-06-08] MEDS ORDERED: ACETAMINOPHEN TAB 325 MG TAB PO PRN (06:28)
[2020-06-08] MEDS ORDERED: haloperidoL 5 MG TAB PO PRN (06:28)
[2020-06-08] MEDS ORDERED: MAGNESIUM HYDROXIDE 2,400 MG/10 ML CUP PO PRN (06:28)
[2020-06-08] MEDS ORDERED: hydrOXYzine pamoate 25 MG CAP PO PRN (12:56)
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
[2020-06-08] MEDS: ARIPiprazole 5 MG TAB PO SCH (13:45)
[2020-06-08] MEDS: NICOTINE 14MG/24HR PATCH TRANSDERM SCH (13:45)
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
[2020-06-09 06:44] LABS: Basophils # (A) 0.1 k/uL (0-0.2); Basophils % (A) 1 %; Eosinophils # (A) 0.1 k/uL (0-0.7); Eosinophils % (A) 2 %; HCT 38.3 % (34.0-46.0); HGB 13.2 gm/dL (11.4-16.0); Lymphocytes % (A) 47 %; MCH 29.3 pg (25.0-35.0); MCHC 34.4 g/dL (31.0-37.0); MCV 85.2 fL (80.0-100.0); Mean Platelet Volume 7.8; Monocytes # (A) 0.5 k/uL (0-1.0); Monocytes % (A) 8 %; Neutrophils # (A) 2.7 k/uL (1.3-7.7); Neutrophils % (A) 41 %; Platelet Count 281 k/uL (150-450); RDW 13.5 % (11.5-15.5); WBC 6.4 k/uL (3.8-10.6)
[2020-06-09 06:58] LABS: Carbon Dioxide 24 mmol/L (22-30); Chloride 104 mmol/L (98-107); Glucose 87 mg/dL (74-99); Potassium 4.2 mmol/L (3.5-5.1); Sodium 137 mmol/L (137-145)
[2020-06-09 06:59] LABS: ALT 34 U/L (4-34); AST 37 U/L (14-36); African American GFR (CKD) >90 (>60 ml/min/1.73 sqM); Albumin 4.3 g/dL (3.5-5.0); Alkaline Phosphatase 78 U/L (38-126); Anion Gap 9 mmol/L; Bilirubin, Delta 0.2 mg/dL (0.0-0.2); Bilirubin,Unconjugated 0.5 mg/dL (0.0-1.1); Blood Urea Nitrogen 15 mg/dL (7-17); Calcium 9.3 mg/dL (8.4-10.2); Cholesterol 215 mg/dL (<200); HDL Cholesterol 40 mg/dL (40-60); LDL Cholesterol,Calculated 153 mg/dL (0-99); Non-African American GFR(CKD) >90 (>60 ml/min/1.73 sqM); Total Bilirubin 0.7 mg/dL (0.2-1.3); Total Protein 7.7 g/dL (6.3-8.2); Triglycerides 110 mg/dL (<150)
[2020-06-09 07:15] VITALS: RESP 16
[2020-06-09] MEDS: NICOTINE 14MG/24HR PATCH TRANSDERM SCH (08:54)
[2020-06-09] MEDS: ARIPiprazole 5 MG TAB PO SCH (08:54)
--- NOTE | 2020-06-09 11:45 | P.PN ---
Progress Note - Text Progress Note Date: 06/09/20 Interval History: Patient was seen lying in bed this morning with her one-to-one sitter and was directable and agreeable to speak with editorial writer in the office. Patient appeared to be somewhat lethargic this morning however was attempting to be cooperative during conversation. She describes some of the events which led her to come in the hospital and states that "I've been off my medications for 4 years". She described that she was feeling "cloudy" and does not remember much prior to her into the hospital. She states that she needs to be in the hospital to "get my mind right". She is fairly vague and evasive at times. She was however thankful for editorial writer and his help. She states that she was able to sleep fairly last night. She claims that the Abilify has been making her fairly tired and claims that she did better on paliperidone in the past. She claims that she would like to have her medication switched at this time. She describes some racing thoughts. She claims that she has been eating and try and attend group as much as she can. At this time patient denies any suicidal or homical ideations, intent or plan. Patient denies any visual hallucinations. She states that she has been hearing voices "2 of them are talking in my head telling me what to do". Patient denies any side effects from the medications and has been compliant with meds. Mental Status Exam: General Appearance: Patient appears to be overweight, stated age is lethargic, directable and attempts to be cooperative. Disheveled appearance. Behavior: Patient is calmly seated without any agitated behavior. Speech: Patient's speech is fluent and nonpressured. [place]. Mood/Affect: Mood is improving mildly, affect is congruent and constricted. Suicidality/Homicidality: Patient denies having any suicidal or homicidal ideation intent or plan. Perceptions: Patient denies any visual hallucinations and admits to auditory hallucinations of 2 voices speaking to her and telling her what to do. Though content/process: Vision is concrete, poverty of content. Evasive at times. Not endorsing delusions or paranoia. Memory and concentration: AOX3, grossly intact for the purposes of this session Judgment and insight: Poor, Improving mildly Assessment Bipolar disorder, most recent episode mixed with psychotic features. Posttraumatic stress disorder. Personality disorder unspecified Methamphetamine abuse Cocaine abuse Cannabis use disorder Nicotine use disorder. Plan: -Patient continues to meet criteria for inpatient psychiatric admission for symptom stabilization and safety. Patient has signed adult voluntary form and medication consent and was placed in patient's chart. -Medications: Patient claims that she would like to be switched back on to paliperidone by mouth we'll start 3 mg daily at bedtime for mood stabilization/psychosis. Vistaril when necessary for anxiety. -When necessary Ativan and Haldol for agitation/aggression. -NRT - nicotine patch -SW on board for discharge planning. Encouraged the patient to participate in milieu. Spoke with patient about the options for substance use treatment and she claims that she would like to think about going to rehab however does not want to go to [place], will continue to follow-up with patient tomorrow about this.
[2020-06-09 16:09] LABS: Hemoglobin A1C 6.3 % (4.0-6.0)
[2020-06-09] MEDS: PALIPERIDONE 3 MG TAB.ER.24 PO SCH (21:21)
[2020-06-10] MEDS: NICOTINE 14MG/24HR PATCH TRANSDERM SCH (08:12)
--- NOTE | 2020-06-10 10:26 | P.PN ---
Progress Note - Text Progress Note Date: 06/10/20 Interval History: Patient was seen lying in bed this morning and was directable and agreeable to speak with senior underwriter in the office. Patient appeared to be somewhat lethargic again this morning. She states that she felt very tired last night and was able to sleep throughout the night. She claims that the medications have been helping her significantly with her mood and also her voices that she was experiencing yesterday. She claims that she wants to remain on the paliperidone to "get used to it". She was fairly concrete with senior underwriter however did share more of her feelings and her plans for when she gets out of the hospital. She described improvement in her racing thoughts today. She states that she has been showering every day and went to 2 groups yesterday however was vague about the topics that were discussed in group. At this time patient denies any suicidal or homical ideations, intent or plan. Patient denies any visual hallucinations. Patient has been compliant with meds. Mental Status Exam: General Appearance: Patient appears to be overweight, stated age is lethargic, directable and attempts to be cooperative. Hygiene and grooming have been improving mildly. Behavior: Patient is calmly seated without any agitated behavior. Speech: Patient's speech is fluent and nonpressured. [place]. Mood/Affect: Mood is improving mildly, affect is congruent and constricted. Suicidality/Homicidality: Patient denies having any suicidal or homicidal ideation intent or plan. Perceptions: Patient denies any visual hallucinations and today denies any auditory hallucinations. Though content/process: patient is concrete, poverty of content. Evasive at times. Not endorsing delusions or paranoia. Memory and concentration: AOX3, grossly intact for the purposes of this session Judgment and insight: Poor, Improving mildly Assessment Bipolar disorder, most recent episode mixed with psychotic features. Posttraumatic stress disorder. Personality disorder unspecified Methamphetamine abuse Cocaine abuse Cannabis use disorder Nicotine use disorder. Plan: -Patient continues to meet criteria for inpatient psychiatric admission for symptom stabilization and safety. Patient has signed adult voluntary form and medication consent and was placed in patient's chart. -Medications: Continue with paliperidone by mouth 3 mg daily at bedtime for mood stabilization/psychosis. Vistaril when necessary for anxiety. -When necessary Ativan and Haldol for agitation/aggression. -NRT - nicotine patch -SW on board for discharge planning. Encouraged the patient to participate in milieu. Spoke with patient about the options for substance use treatment and she claims that she would like to think about going to rehab however does not want to go to [place]. will have SW speak with patient today to discuss the options. likely discharge in 1-2 days.
[2020-06-10] MEDS: LORazepam 1 MG TAB PO PRN (12:38)
[2020-06-10] MEDS: PALIPERIDONE 3 MG TAB.ER.24 PO SCH (20:44)
[2020-06-10 22:10] LABS: Appearance,Urine Cloudy (Clear); Bacteria,Urine Rare /hpf; Bilirubin,Urine Negative (Negative); Blood,Urine Negative (Negative); Color,Urine Light Yellow; Glucose,Urine (UA) Negative (Negative); Ketones,Urine Negative (Negative); Leukocyte Esterase,Urine Moderate (Negative); Nitrite,Urine Negative (Negative); PH, Urine 6.5 (5.0-8.0); Protein,Urine Negative (Negative); RBC,Urine 1 /hpf (0-5); Specific Gravity,Urine 1.008 (1.001-1.035); Squamous Epithelial Cell,Urine 4 /hpf (0-4); Urobilinogen,Urine <2.0 mg/dL (<2.0); WBC,Urine 14 /hpf (0-5)
[2020-06-11] MEDS: LORazepam 1 MG TAB PO PRN (00:30)
[2020-06-11 00:33] VITALS: BP 141/85; PULSE 94; TEMP 98.5
[2020-06-11] MEDS: NICOTINE 14MG/24HR PATCH TRANSDERM SCH ×2 (08:13→08:15)
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
== END 2020-06-11 12:00 | disposition home or self-care (01) | DRG 885 ==
LOC: EC 01:20 → 3MHU 06:27
PROVIDERS: ADMIT Psychiatry & Neurology Psychiatry; ATTEND Psychiatry & Neurology Psychiatry
DX: F31.5 Bipolar disorder, current episode depressed, severe, with psychotic features (principal); F15.20 Other stimulant dependence, uncomplicated; F17.200 Nicotine dependence, unspecified, uncomplicated; F43.10 Post-traumatic stress disorder, unspecified; F60.0 Paranoid personality disorder; I10 Essential (primary) hypertension; J45.20 Mild intermittent asthma, uncomplicated; F12.20 Cannabis dependence, uncomplicated; F14.10 Cocaine abuse, uncomplicated; E11.9 Type 2 diabetes mellitus without complications; Z20.822 Contact with and (suspected) exposure to COVID-19; F41.0 Panic disorder [episodic paroxysmal anxiety]; Z62.810 Personal history of physical and sexual abuse in childhood; N83.201 Unspecified ovarian cyst, right side; N83.202 Unspecified ovarian cyst, left side; N87.9 Dysplasia of cervix uteri, unspecified; Z85.41 Personal history of malignant neoplasm of cervix uteri; Z86.73 Personal history of transient ischemic attack (TIA), and cerebral infarction without residual deficits; Z91.19 Patient's noncompliance with other medical treatment and regimen; Z91.410 Personal history of adult physical and sexual abuse; Z91.5 Personal history of self-harm; Z82.49 Family history of ischemic heart disease and other diseases of the circulatory system; I25.2 Old myocardial infarction; Z91.040 Latex allergy status; Z90.49 Acquired absence of other specified parts of digestive tract; Z98.890 Other specified postprocedural states; Z98.51 Tubal ligation status; Z82.61 Family history of arthritis; Z83.6 Family history of other diseases of the respiratory system; Z59.0 Homelessness
CPT/HCPCS: 80053; 80061; 80306; 81001; 81025; 82075; 82248; 83036; 84443; 85025; 87635; 93005; 99285

== ENCOUNTER 2023-03-18 09:49 | Day surgery (SDC) | payer OTHER ==
[2023-03-16 11:05] VITALS: BMI 46.5
[~2023-03-18 09:49] MED LIST: LACTATED RINGERS 1,000 ML IV SCH
[2023-03-18 10:14] LABS: Glucose,Whole Blood 131 mg/dL (70-110)
[2023-03-18] MEDS ORDERED: LIDOCAINE 1% INJ 10MG/ML (20 ML MDV) ONE (10:17)
[2023-03-18] MEDS ORDERED: PROPOFOL 10 MG/ML 20 ML VIAL IV ONE (10:17)
[2023-03-18 10:27] VITALS: RESP 16; TEMP 97.4
--- NOTE | 2023-03-18 10:29 | P.PCN ---
Date of Procedure: 03/18/23 Procedure(s) Performed: BRIEF HISTORY: Patient is a 42-year-old, pleasant, white female scheduled for an upper endoscopy as a part of evaluation of chronic epigastric pain for the last several years duration. She also has intermittent nausea vomiting.. PROCEDURE PERFORMED: Esophagogastroduodenoscopy with biopsy. PREOPERATIVE DIAGNOSIS: Chronic epigastric pain associated with intermittent nausea vomiting. IV sedation per anesthesia. PROCEDURE: After informed consent was obtained, the patient was brought into the endoscopy unit. IV sedation was administered by Anesthesia under continuous monitoring. Initially the Olympus GIF-140 video endoscope was inserted into the mouth. Esophagus intubated without any difficulty. It was gradually advanced into the stomach and duodenum and carefully examined. The bulb and the second part of the duodenum appeared normal. Biopsies were done from the duodenum to rule out celiac disease. The scope at this time was withdrawn to the stomach, adequately insufflated with air, and upon careful examination, mucosa of the antrum, had mild diffuse gastritis and biopsies were done from this area. Mucosa of the body, cardia and the fundus appeared normal. The scope was then withdrawn into the esophagus. Small hiatal hernia noted. The GE junction was located at 39 cm from the incisors. The esophagus appeared normal. There were no erosions or ulcerations seen, biopsies were done from the distal esophagus and the patient tolerated the procedure well. IMPRESSION: 1. Diffuse antral gastritis. 2. Small hiatal hernia but no evidence of esophagitis. RECOMMENDATIONS: The findings of this examination were discussed with the patient as well as a family. She was advised to follow with the biopsy results.. Recommend any trial of Pepcid 20 mg twice daily and continue with antacids as needed.
[2023-03-18 10:44] LABS: Glucose,Whole Blood 133 mg/dL (70-110)
[2023-03-18 11:16] VITALS: BP 129/85; PULSE 75
== END 2023-03-18 11:30 | disposition home or self-care (01) ==
LOC: ORWHC2ENDO 09:49
PROVIDERS: ATTEND Internal Medicine Gastroenterology
DX: K29.50 Unspecified chronic gastritis without bleeding (principal); K44.9 Diaphragmatic hernia without obstruction or gangrene; G89.29 Other chronic pain; I10 Essential (primary) hypertension; E78.5 Hyperlipidemia, unspecified; I25.2 Old myocardial infarction; J45.909 Unspecified asthma, uncomplicated; G47.33 Obstructive sleep apnea (adult) (pediatric); E11.9 Type 2 diabetes mellitus without complications; Z79.4 Long term (current) use of insulin; Z79.51 Long term (current) use of inhaled steroids; Z79.899 Other long term (current) drug therapy; Z93.59 Other cystostomy status; Z98.51 Tubal ligation status; Z98.890 Other specified postprocedural states
CPT/HCPCS: 81025; 88305; 43239; J2001; J2704

== ENCOUNTER → 2023-04-11 | Outpatient (CLI) | payer OTHER ==
--- NOTE | 2023-04-11 17:58 | XR ---
EXAMINATION TYPE: XR lumbosacral spine min 4V DATE OF EXAM: 04/11/2023 3:55 PM CLINICAL INDICATION:Female, 42 years old with history of M5442, [id number] LUMBAGO LEFT/RIGHT SIDE; COMPARISON: None TECHNIQUE: XR lumbosacral spine min 4V - Frontal, lateral and coned in L5-S1 lateral views of the spi ne. FINDINGS: No evidence of any acute osseous pathology. No evidence of loss of vertebral body height i s seen. There is normal alignment of the lumbar vertebral bodies. Mild scattered disc space narrowing . Multilevel marginal osteophyte formation throughout the visualized spine. There is facet joint arth ropathy throughout the spine. Scattered at least mild neural foraminal stenosis. Right upper quadrant cholecystectomy clips. IMPRESSION: 1. No acute fracture. 2. Mild multilevel disc degeneration.
[2023-04-12 02:35] LABS: Albumin 5.2 g/dL (3.8-4.9); Protein, Total 8.6 g/dL (6.2-8.2)
[2023-04-12 02:47] LABS: Hepatitis B Surface Antigen Nonreactive; Hepatitis C IgG Antibody Nonreactive
[2023-04-12 03:00] LABS: % Iron Saturation 14.95 (12.00-45.00); ALT 83 U/L (8-44); AST 52 U/L (13-35); Albumin 5.1 g/dL (3.8-4.9); Albumin/Globulin Ratio 1.38 Ratio (1.60-3.17); Alkaline Phosphatase 106 U/L (41-126); Blood Urea Nitrogen 13.2 mg/dL (9.0-27.0); Calcium 10.7 mg/dL (8.7-10.3); Carbon Dioxide 19.9 mmol/L (21.6-31.8); Chloride 98 mmol/L (96-109); Ferritin 82.3 ng/mL (10.0-291.0); Globulin 3.7 g/dL (1.6-3.3); Glucose 126 mg/dL (70-110); Iron 77 UG/DL (50-170); Potassium 4.2 mmol/L (3.5-5.5); Sodium 138 mmol/L (135-145); Total Bilirubin 0.4 mg/dL (0.3-1.2); Total Iron Binding Capacity 515 UG/DL (228-460); Total Protein 8.8 g/dL (6.2-8.2)
[2023-04-12 03:05] LABS: Ceruloplasmin 32.7 mg/dL (20.0-60.0)
[2023-04-12 04:39] LABS: Basophils # (A) 0.05 X 10*3/uL (0.00-0.10); Basophils % (A) 0.5 %; Eosinophils # (A) 0.04 X 10*3/uL (0.04-0.35); Eosinophils % (A) 0.4 %; HCT 46.1 % (37.2-46.3); HGB 15.3 g/dL (12.0-15.0); Lymphocytes # (A) 3.37 X 10*3/uL (0.90-5.00); Lymphocytes % (A) 30.7 %; MCH 29.4 pg (27.0-32.0); MCHC 33.2 g/dL (32.0-37.0); MCV 88.5 FL (80.0-97.0); Mean Platelet Volume 11.7 FL (9.5-12.2); Monocytes # (A) 0.77 X 10*3/uL (0.20-1.00); NRBC Per 100 WBC 0 X 10*3/uL (0.00-0.01); Neutrophils # (A) 6.69 X 10*3/uL (1.80-7.70); Platelet Count 345 X 10*3/uL (140-440); RBC 5.21 X 10*6/uL (4.10-5.20); WBC 10.96 X 10*3/uL (4.50-10.00)
[2023-04-12 17:21] LABS: Gamma Globulin 1.27 g/dL (0.70-1.50)
== END | disposition home or self-care (01) ==
LOC: RADXRMAIN 15:39
PROVIDERS: ATTEND Internal Medicine Gastroenterology
DX: M51.17 Intervertebral disc disorders with radiculopathy, lumbosacral region (principal); R74.8 Abnormal levels of other serum enzymes
CPT/HCPCS: 72110; 80053; 82103; 82390; 82728; 83516; 83540; 83550; 84165; 85025; 86038; 86803; 87340

== ENCOUNTER → 2023-04-19 | Outpatient (CLI) | payer OTHER | END | disposition home or self-care (01) | LOC: LABWHC1 14:36 | PROVIDERS: ATTEND Internal Medicine Gastroenterology | DX: R74.8 Abnormal levels of other serum enzymes (principal) | CPT/HCPCS: 36415 ==

== ENCOUNTER 2024-02-24 10:09 | Emergency (ER) | payer OTHER ==
[2024-02-24 10:14] VITALS: RESP 20; TEMP 98.2
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
--- NOTE | 2024-02-24 12:04 | US ---
EXAMINATION TYPE: US venous doppler duplex LE LT DATE OF EXAM: 02/24/2024 10:56 AM COMPARISON: NONE CLINICAL INDICATION: Female, 43 years old with history of leg pain; left leg pain x 3 days, no injury , no swelling, no h.o dvt TECHNIQUE: The lower extremity deep venous system is examined utilizing real time linear array sonog ko with graded compression, color doppler sonography, and spectral doppler. SIDE PERFORMED: Left FINDINGS: VESSELS IMAGED: Common Femoral Vein Deep Femoral Vein Greater Saphenous Vein * Femoral Vein Popliteal Vein Small Saphenous Vein * Proximal Calf Veins (* superficial vessels) Left Leg: Negative for DVT Grayscale, color doppler, spectral doppler imaging performed of the deep veins of the lower extremiti es. IMPRESSION: 1. No ultrasound evidence for deep venous thrombosis of either lower extremity. [facility], , 02/24/2024 12:01 PM
--- NOTE | 2024-02-24 12:31 | XR ---
EXAMINATION TYPE: XR knee complete LT DATE OF EXAM: 02/24/2024 12:27 PM CLINICAL INDICATION: Female, 43 years old with history of pain; COMPARISON: None. TECHNIQUE: XR knee complete LT; examined in Frontal, lateral and oblique projections. FINDINGS: No evidence of any acute osseous pathology, or soft tissue swelling. There is a small elana nt effusion. Tricompartmental osteophyte formation involving the femoral condyles, tibial plateau and patella. Mild joint space narrowing. IMPRESSION: 1. No acute osseous pathology. 2. Mild to moderate tricompartmental osteoarthritic changes. [facility], , 02/24/2024 12:29 PM
[2024-02-24] MEDS: KETOROLAC 15 MG/ML 1 ML VIAL IM STA (12:53)
[2024-02-24] MEDS: HYDROmorphone 1 MG/ML 1 ML SYRINGE IM STA (14:37)
--- NOTE | 2024-02-24 14:37 | XR ---
EXAMINATION TYPE: XR Hip Complete LT DATE OF EXAM: 02/24/2024 2:31 PM CLINICAL INDICATION: Female, 43 years old with history of knee pain; COMPARISON: None. TECHNIQUE: XR Hip Complete LT; hip was examined in the frontal and lateral projections and a AP pelvi s. FINDINGS: No evidence for acute process, joint dislocation or significant soft tissue swelling. Osteo phyte formation of the superior acetabulum of the hip. There is mild joint space narrowing. IMPRESSION: 1. No evidence for acute process. 2. Mild hip osteoarthrosis. [facility], , 02/24/2024 2:34 PM
--- NOTE | 2024-02-24 14:43 | CT ---
EXAMINATION TYPE: CT knee LT wo con CT DLP: 207.7 mGycm, Automated exposure control for dose reduction was used. DATE OF EXAM: 02/24/2024 2:26 PM COMPARISON: Left knee radiograph the same date. CLINICAL INDICATION:Female, 43 years old with history of pain; PHH, LEFT KNEE PAIN, NO KNOWN INJURY TECHNIQUE: Axial images were obtained of the left knee without the use of IV contrast. Additional co zuly and sagittal reformatted images and soft tissue and bone window were obtained for review. 3-D r econstruction was created on a separate workstation. FINDINGS: There is no evidence of fracture, subluxation, or dislocation. Mild tricompartmental joint space narrowing with marginal spurring. No subchondral cystic changes identified. Small knee joint ef fusion. No significant soft tissue swelling. No focal muscular atrophy or edema is identified. No rad iopaque foreign body identified. IMPRESSION: 1. No acute fracture or dislocation. 2. Small knee joint effusion. 3. Mild osteoarthritic changes of the knee. [facility], , 02/24/2024 2:41 PM
[2024-02-24 16:08] VITALS: BP 115/79; PULSE 87
== END 2024-02-24 16:07 | disposition home or self-care (01) ==
LOC: EC 10:09
CPT/HCPCS: 73502; 96372; 99284